=== PATIENT | female | born 1945 | race Caucasian/White ===

== ENCOUNTER → 2017-06-10 | Outpatient (CLI) | payer MEDICARE | LOC: RAD 08:40 | PROVIDERS: ATTEND Family Medicine | DX: I51.7 Cardiomegaly (principal) | CPT/HCPCS: 93306 ==

== ENCOUNTER 2017-09-23 16:38 | Inpatient (IN) | payer MEDICARE ==
[~2017-09-23] VITALS: Ht 152.4 cm; Wt 79.4 kg
[2017-09-23] VITALS (14 sets, daily range): BP systolic 89–154; BP diastolic 53–130
[2017-09-23] MEDS ORDERED: FUROSEMIDE INJ 10 MG/ML 4 ML VIAL IV ONE (18:00)
[2017-09-23] MEDS ORDERED: METOPROLOL TARTRATE INJ 1 MG/ML VIAL IV SCH (18:00)
[2017-09-23] MEDS ORDERED: FAMOTIDINE 20 MG/2 ML VIAL IV ONE (18:00)
[2017-09-23] MEDS ORDERED: ONDANSETRON HCL INJ 2 MG/ML VIAL IV PRN (18:00)
[2017-09-23] MEDS ORDERED: NITROGLYCERIN 2% OINT 1 GM PKT TOP ONE (18:00)
[2017-09-23 18:08] LABS: BASOPHILS % 0.3 % (0.0-1.0); EOSINOPHILS # (AUTO) 0.2 (0.0-0.4); EOSINOPHILS % 1.8 % (0.0-6.0); HEMATOCRIT 45.8 % (34.2-44.1); HEMOGLOBIN 15.3 g/dL (12.0-16.0); LYMPHOCYTES # (AUTO) 1.5 (1.0-3.2); LYMPHOCYTES % 13.8 % (18.0-39.1); MEAN CORPUSCULAR HEMOGLOBIN 29.8 pg (28-32); MEAN CORPUSCULAR HGB CONC 33.4 g/dL (31-35); MEAN CORPUSCULAR VOLUME 89.1 fL (81-99); MONOCYTES # (AUTO) 1.1 (0.2-0.8); MONOCYTES % 9.7 % (4.4-11.3); NEUTROPHILS # (AUTO) 8.1 (2.1-6.9); NEUTROPHILS % 74.1 % (38.7-80.0); PLATELET COUNT 288 x10e3/uL (140-360); RED BLOOD COUNT 5.14 x10e6/uL (3.6-5.1); RED CELL DISTRIBUTION WIDTH 15.2 % (11.7-14.4)
[2017-09-23] MEDS ORDERED: HYDRALAZINE HC100 MG (18:09)
[2017-09-23] MEDS ORDERED: LOVASTATIN40 MG (18:09)
[2017-09-23] MEDS ORDERED: LUMIGAN2.5 M1 (18:09)
[2017-09-23] MEDS ORDERED: ATENOLOL25 MG (18:09)
[2017-09-23] MEDS ORDERED: CLONAZEPAM0.5 M1 (18:09)
[2017-09-23] MEDS ORDERED: FUROSEMIDE20 MG PO (18:09)
[2017-09-23] MEDS ORDERED: BETIMOL5 M1 (18:09)
[2017-09-23] MEDS ORDERED: METFORMIN HCL500 MG (18:09)
[2017-09-23] MEDS ORDERED: LISINOPRIL10 MG PO (18:10)
[2017-09-23] MEDS ORDERED: METOPROLOL TARTRATE INJ 1 MG/ML VIAL ONE ×2 (18:14→19:09)
[2017-09-23 18:17] LABS: BLOOD UREA NITROGEN 23 mg/dL (8-26); BUN/CREATININE RATIO 26 (6-25); CARBON DIOXIDE 25 mmol/L (22-32); CHLORIDE 107 mmol/L (101-111); CREATININE, SERUM 0.9 mg/dL (0.6-1.1); EST GLOMERULAR FILTRATION RATE > 60 ML/MIN (60-); GLUCOSE 121 mg/dL (74-118); SODIUM 141 mmol/L (136-144)
--- NOTE | 2017-09-23 18:17 | Diagnostic Imaging Report ---
PROCEDURE: A single AP view of the chest. COMPARISON: None. INDICATIONS: SOB, CHF, CHEST PAIN FOR A FEW WEEKS FINDINGS: Lines/tubes: None. Lungs and pleura: The lungs are well-inflated. Bilateral lower lung hazy opacities represent layering effusions or soft tissue attenuation. No definite consolidation Heart and mediastinum: Moderately enlarged cardiac silhouette. Central pulmonary venous congestion. Bones: No acute bony abnormality. IMPRESSION: 1. moderately large cardiac silhouette. Central pulmonary venous congestion, suggesting CHF. 2. Bilateral lower lung hazy opacities may reflect layering effusions versus soft tissue attenuation from body habitus. Chest PA and lateral may be obtained for further evaluation. Johan West M.D. Dictated by: Johan West M.D. on 09/23/2017 at 18:22 Electronically approved by: Johan West M.D. on 09/23/2017 at 18:22
[2017-09-23] MEDS ORDERED: DILTIAZEM HCL 5 MG/ML 5 ML VIAL IV STA (18:51)
[2017-09-23] MEDS ORDERED: SODIUM CHLORIDE FLUSH 10 ML SYR INJ PRN (19:00)
[2017-09-23] MEDS: METOPROLOL TARTRATE INJ 1 MG/ML VIAL IV SCH ×2 (19:05→19:10)
[2017-09-23] MEDS ORDERED: ENOXAPARIN INJ 80 MG/0.8 ML SYR SC STA (19:34)
[2017-09-23] MEDS: DILTIAZEM HCL 100 ML IV SCH (20:18)
[2017-09-23 21:41] LABS: ALANINE AMINOTRANSFERASE 37 IU/L (0-55); ALBUMIN 3.1 g/dL (3.5-5.0); ALBUMIN/GLOBULIN RATIO 1.3 (0.8-2.0); ALKALINE PHOSPHATASE 71 IU/L (40-150); CALCIUM 8.9 mg/dL (8.4-10.2); CREATINE KINASE 39 IU/L (29-168); MAGNESIUM 1.4 MG/DL (1.3-2.1)
[2017-09-24] VITALS (39 sets, daily range): BP systolic 112–145; BP diastolic 65–114
--- NOTE | 2017-09-24 01:03 | History and Physical ---
HISTORY OF PRESENT ILLNESS: This is a 72-year-old female with a history of hypertension, history of diabetes mellitus who came into the office with shortness of breath and also some palpitations. EKG was done in the office, and the patient was found to be in atrial fibrillation with rapid ventricular response and also with congestive heart failure, and the patient was sent to the emergency room for further evaluation. PAST MEDICAL HISTORY: Includes a history of glaucoma, history of essential hypertension, history of hyperlipidemia, history of anxiety disorder, history of type 2 diabetes mellitus and history of hypertension. ALLERGIES: CODEINE. PAST SURGICAL HISTORY: Cataracts bilaterally. FAMILY HISTORY: Father and mother are and history of hypertension and hypertensive heart disease in mother. SOCIAL HISTORY: No ETOH, no IV drug abuse, no history of tobacco abuse. REVIEW OF SYSTEMS: Negative chest pain. Positive for shortness of breath. Positive for some PND. No orthopnea. No diplopia. No blurry vision. Positive for anxiety. No depression. No nausea, vomiting, diarrhea. No hematochezia, no hematemesis either. HOME MEDICATIONS: Atenolol 25 mg, lovastatin 40 mg, eye drops, lisinopril 20 mg, metformin 500 mg, furosemide 20 mg, clonidine 0.2 mg, hydralazine and Klonopin as needed for anxiety. The patient has had pneumococcal immunizations recently in 2017. PHYSICAL EXAMINATION GENERAL: The patient is alert and oriented x3, a little anxious appearing. HEENT: Normocephalic, atraumatic. Pupils reactive to light and accommodation. CVS: S1 and S2. Irregularly irregular, rhythm tachy. The patient has an S3 too. LUNGS: Positive for crackles along the bases. ABDOMEN: Nontender, nondistended. EXTREMITIES: 2+ edema. EKG shows atrial fibrillation with rapid ventricular response. Chest x-ray shows moderate cardiomegaly, enlarged cardiac silhouette, and bilateral lower lung hazy opacities. The initial blood work that we have shows sodium 141, potassium 4.0, BUN 23, creatinine 0.9 with estimated GFR of above 60. Glucose is 121. ALT, AST pending. BNP 849. White count ___.94, hemoglobin 15.0, hematocrit 45.8. Neutrophil count 8.1. ASSESSMENT 1. Atrial fibrillation with rapid ventricular response. 2. Congestive heart failure. 3. Hypertension. 4. Hyperlipidemia. PLAN: Admit the patient and a Cardizem drip has been started. The patient has been given IV metoprolol, heart rate . Need an echocardiogram. Dr. Stoddard has been consulted. Will also do a thyroid profile. Restart home medications. IV Lasix for diuresing her. Strict I's and O's and daily weights will be monitored. A low-salt diet. Further recommendations depending on clinical course and also depending on cardiology. Will continue to monitor the patient along with cardiology. The patient is on Cardizem drip. Job#: [id number] GH
[2017-09-24 03:37] LABS: CREATINE KINASE MB 1.8 ng/mL (0-5.0)
[2017-09-24 04:37] LABS: BASOPHILS # (AUTO) 0.1 (0.0-0.1); BASOPHILS % 0.6 % (0.0-1.0); EOSINOPHILS # (AUTO) 0.3 (0.0-0.4); EOSINOPHILS % 3.2 % (0.0-6.0); HEMATOCRIT 42.4 % (34.2-44.1); LYMPHOCYTES # (AUTO) 1.6 (1.0-3.2); LYMPHOCYTES % 18.9 % (18.0-39.1); MEAN CORPUSCULAR HEMOGLOBIN 29.5 pg (28-32); MEAN CORPUSCULAR VOLUME 89.5 fL (81-99); MONOCYTES # (AUTO) 1.1 (0.2-0.8); MONOCYTES % 12.6 % (4.4-11.3); NEUTROPHILS # (AUTO) 5.5 (2.1-6.9); NEUTROPHILS % 64.3 % (38.7-80.0); PLATELET COUNT 219 x10e3/uL (140-360); RED BLOOD COUNT 4.74 x10e6/uL (3.6-5.1); RED CELL DISTRIBUTION WIDTH 14.8 % (11.7-14.4)
[2017-09-24 05:06] LABS: ANION GAP 14.3 mmol/L (8-16); BLOOD UREA NITROGEN 19 mg/dL (7-26); BUN/CREATININE RATIO 25 (6-25); CALCIUM 8.4 mg/dL (8.4-10.2); CARBON DIOXIDE 23 mmol/L (22-29); CHLORIDE 108 mmol/L (98-107); CREATININE, SERUM 0.75 mg/dL (0.57-1.11); EST GLOMERULAR FILTRATION RATE > 60 ML/MIN (60-); GLUCOSE 100 mg/dL (74-118); POTASSIUM 3.3 mmol/L (3.5-5.1); SODIUM 142 mmol/L (136-145)
[2017-09-24 05:37] LABS: FREE THYROXINE INDEX 2.1981 (1.4-3.8); THYROID STIMULATING HORMONE 1.084 uIU/mL (0.350-4.940)
[2017-09-24] MEDS: DILTIAZEM HCL 100 ML IV SCH (07:46)
[2017-09-24] MEDS ORDERED: POTASSIUM CHLORIDE 20 MEQ TAB CR PO STA (07:57)
[2017-09-24] MEDS ORDERED: DEXTROSE 50% SYRINGE 50 ML IV PRN (08:00)
[2017-09-24] MEDS: APIXABAN 5 MG TABLET PO SCH ×2 (08:22→17:34)
[2017-09-24] MEDS: LISINOPRIL 10 MG TAB PO SCH (08:22)
[2017-09-24] MEDS ORDERED: METOPROLOL TARTRATE 25 MG TAB PO SCH (09:00)
[2017-09-24] MEDS ORDERED: FUROSEMIDE INJ 10 MG/ML 4 ML VIAL IV SCH (09:00)
[2017-09-24 11:17] LABS: CREATINE KINASE MB 1.8 ng/mL (0-5.0)
[2017-09-24] MEDS: INSULIN REGULAR, HUMAN 100 UNIT/1 ML 3ML VIAL SQ SCH ×3 (11:24→21:00)
[2017-09-24] MEDS: METOPROLOL TARTRATE 25 MG TAB PO SCH ×2 (11:26→17:34)
[2017-09-24] MEDS: AMIODARONE HCL 200 MG TAB PO SCH ×3 (11:28→21:14)
--- NOTE | 2017-09-24 13:47 | Consultation ---
DATE OF CONSULTATION: September 24, 2017 CARDIAC CONSULTATION REASON FOR CONSULTATION: Atrial fibrillation with rapid ventricular response. Congestive heart failure. HISTORY: A 72-year-old lady who is known with hypertension and diabetes mellitus. Patient for the last couple of weeks also not feeling well with loss of energy, easy fatigability, shortness of breath on exertion, and swelling of the lower extremities and some cough. She denied having any anginal chest pain. She denied having any pleuritic chest pain. She denied having any recent trouble. She denied having any recent febrile illness. She was found to be in atrial fibrillation with rapid ventricular response. She was advised to go to the emergency room. In the emergency room her chest x-ray showed cardiomegaly with volume overload. Her BNP was 849, and she was in atrial fibrillation with rapid ventricular response. Patient was started on Cardizem drip. She was given diuretics, admitted to the intensive care unit. Cardiac consultation is obtained. I visited with the patient, who denied having any chest pain at this timepoint. Her shortness of breath seems to be better after getting the diuretics. She is on Cardizem drip with a heart rate approximately at 100. REVIEW OF SYSTEMS: CARDIAC: As per above. PULMONARY: As per above. GENERAL: No fever. No chills. No weight loss or gain. GI: No hematemesis. No melena. No nausea. No vomiting. No diarrhea. : Increased frequency of urination. No hematuria. No dysuria. MUSCULOSKELETAL: Some back pain, knee pain at times, nonspecific. NEUROLOGICAL: No speech abnormality. No seizure activity. No CVA symptoms. ENDOCRINE: Patient on treatment for diabetes. HEMATOLOGY: No easy bruising or bleeding. PSYCHIATRIC: Patient is anxious usually. PAST MEDICAL HISTORY: 1. Hypertension since 2012. 1. Diabetes mellitus since 2014. 2. Anxiety. 3. Cataract surgery. 4. Glaucoma. 5. Obesity. 6. Degenerative joint disease. SOCIAL HISTORY: She is . She is nonsmoker, [id number]. FAMILY HISTORY: Father at the age of 83 with congestive heart failure. Mother of complication of stroke at age 94. She had also congestive heart failure. One brother unknown medical history. Sister healthy. Three children, one son and two daughters. All are healthy. HOME MEDICATIONS: Atenolol 25 mg a day. Lovastatin 40 mg a day. Hydralazine 100 mg twice a day. Lisinopril 10 mg a day. Lasix 20 mg a day. Clonazepam p.r.n. Lumigan and timolol eyedrops. Metformin 500 mg twice a day. ALLERGIES: CODEINE. PHYSICAL EXAMINATION: VITALS: Height of 5 feet, weight of 170 pounds. Blood pressure 120/80. Heart rate of 100, irregular-irregular of atrial fibrillation. Respiratory rate of 20. HEENT: Pupils are reactive. NECK: No elevation of jugular venous pulsation. No bruit. CHEST: Clear to auscultation and percussion. HEART: PMI 5th left intercostal space. Irregular-irregular rate of atrial fibrillation. Normal 1st and 2nd heart sounds. Soft ejection systolic murmur. ABDOMEN: Soft with no organomegaly. No abdominal bruits. EXTREMITIES: Mild peripheral edema. NEUROLOGIC: Awake, alert, oriented. Able to move her extremities. LABORATORY DATA: Sodium of 142. Potassium on admission 4, today at 3.3. BUN of 19, creatinine 0.75. Glucose of 100. White blood cell count of 8.6, hemoglobin of 14, hematocrit 42%, platelet count of 219. BNP of 849. TSH of 1.1. IMAGING: Chest x-ray as per above. EKG showing atrial fibrillation with rapid ventricular response. IMPRESSION AND PLAN: 1. Atrial fibrillation with rapid ventricular response. 2. Congestive heart failure-like symptoms. Seems to be diastolic by description, secondary to atrial fibrillation and ventricles. 3. Hypertension and hypertensive heart disease. 4. Hyperlipidemia. 5. Diabetes mellitus. 6. Probability of coronary artery disease since patient diabetic and her age, et cetera. Cardiac-garza, recommendation will be as follows: 1. Will review the echocardiogram done. 2. Serial cardiac enzymes. 3. Adjustment of medication and treatment of atrial fibrillation explained at length to the patient and her . Treatment will be towards control of rate and try to convert back to normal sinus rhythm and prevention of thromboembolic phenomena. 4. Regarding her heart failure treatment, probably by controlling rate and adjusting blood pressure medication which would achieve that. 5. Regarding the probability of coronary artery disease, this can be addressed at later time. All this discussed and explained. Questions are answered. Long visit. Patient seen in intensive care unit. Visit was for almost 1 hour or more with discussion, explanation, reviewing records, and explanation of the treatment and answering the patient and her concern. Case discussed with staff. All medications will be adjusted. Will try to stop IV fluid and move her out of ICU. Will follow patient's progression with you and would like to thank you for your kind referral. Job#: [id number] BRITTANY
[2017-09-24] MEDS ORDERED: POTASSIUM CHLORIDE 20 MEQ TAB CR PO ONE (18:00)
[2017-09-25] VITALS (26 sets, daily range): BP systolic 108–160; BP diastolic 75–123
[2017-09-25 04:45] LABS: BASOPHILS % 0.2 % (0.0-1.0); EOSINOPHILS # (AUTO) 0.2 (0.0-0.4); EOSINOPHILS % 2.7 % (0.0-6.0); HEMATOCRIT 42.3 % (34.2-44.1); HEMOGLOBIN 13.7 g/dL (12.0-16.0); LYMPHOCYTES # (AUTO) 1.5 (1.0-3.2); LYMPHOCYTES % 17.7 % (18.0-39.1); MEAN CORPUSCULAR HEMOGLOBIN 29.7 pg (28-32); MEAN CORPUSCULAR HGB CONC 32.4 g/dL (31-35); MEAN CORPUSCULAR VOLUME 91.8 fL (81-99); MONOCYTES % 12.5 % (4.4-11.3); NEUTROPHILS # (AUTO) 5.5 (2.1-6.9); NEUTROPHILS % 66.7 % (38.7-80.0); PLATELET COUNT 202 x10e3/uL (140-360); RED BLOOD COUNT 4.61 x10e6/uL (3.6-5.1)
[2017-09-25 04:59] LABS: INR 1.4; PROTHROMBIN TIME 16.1 seconds (11.9-14.5)
[2017-09-25 05:12] LABS: ALBUMIN 2.8 g/dL (3.5-5.0); ALBUMIN/GLOBULIN RATIO 1.1 (0.8-2.0); ANION GAP 15.3 mmol/L (8-16); CALCIUM 8.7 mg/dL (8.4-10.2); CHOL/HDL RATIO 2.9 (3.0-3.6); CREATININE, SERUM 0.92 mg/dL (0.57-1.11); POTASSIUM 4.3 mmol/L (3.5-5.1)
[2017-09-25] MEDS: DILTIAZEM HCL 100 ML IV SCH (07:00)
[2017-09-25] MEDS: INSULIN REGULAR, HUMAN 100 UNIT/1 ML 3ML VIAL SQ SCH ×4 (08:04→21:17)
[2017-09-25] MEDS: APIXABAN 5 MG TABLET PO SCH ×2 (08:09→17:45)
[2017-09-25] MEDS: AMIODARONE HCL 200 MG TAB PO SCH ×3 (08:09→21:16)
[2017-09-25] MEDS: METOPROLOL TARTRATE 25 MG TAB PO SCH ×3 (08:10→21:16)
[2017-09-25] MEDS: LISINOPRIL 10 MG TAB PO SCH (08:10)
[2017-09-25] MEDS ORDERED: FUROSEMIDE 40 MG TAB PO SCH (09:00)
[2017-09-25] MEDS ORDERED: FUROSEMIDE INJ 10 MG/ML 4 ML VIAL IV ONE (11:30)
[2017-09-25] MEDS: FUROSEMIDE INJ 10 MG/ML 4 ML VIAL IV SCH (21:16)
[2017-09-26] VITALS (18 sets, daily range): BP systolic 83–166; BP diastolic 50–126
[2017-09-26 05:03] LABS: BASOPHILS % 0.3 % (0.0-1.0); EOSINOPHILS # (AUTO) 0.2 (0.0-0.4); EOSINOPHILS % 1.9 % (0.0-6.0); HEMATOCRIT 41.9 % (34.2-44.1); HEMOGLOBIN 13.8 g/dL (12.0-16.0); LYMPHOCYTES # (AUTO) 1.3 (1.0-3.2); LYMPHOCYTES % 12.1 % (18.0-39.1); MEAN CORPUSCULAR HEMOGLOBIN 29.5 pg (28-32); MEAN CORPUSCULAR HGB CONC 32.9 g/dL (31-35); MEAN CORPUSCULAR VOLUME 89.5 fL (81-99); MONOCYTES % 9.5 % (4.4-11.3); NEUTROPHILS # (AUTO) 7.9 (2.1-6.9); NEUTROPHILS % 75.8 % (38.7-80.0); PLATELET COUNT 225 x10e3/uL (140-360); RED BLOOD COUNT 4.68 x10e6/uL (3.6-5.1); RED CELL DISTRIBUTION WIDTH 14.6 % (11.7-14.4)
[2017-09-26 05:36] LABS: ALBUMIN 2.8 g/dL (3.5-5.0); ALBUMIN/GLOBULIN RATIO 1.2 (0.8-2.0); ANION GAP 14.3 mmol/L (8-16); CALCIUM 8.4 mg/dL (8.4-10.2); CREATININE, SERUM 0.94 mg/dL (0.57-1.11); POTASSIUM 3.3 mmol/L (3.5-5.1)
[2017-09-26] MEDS ORDERED: CLONIDINE HCL 0.1 MG TAB PO PRN (06:45)
[2017-09-26] MEDS: INSULIN REGULAR, HUMAN 100 UNIT/1 ML 3ML VIAL SQ SCH ×4 (07:30→20:28)
[2017-09-26] MEDS: CLONAZEPAM 0.5 MG TAB PO PRN (07:49)
[2017-09-26] MEDS ORDERED: POTASSIUM CHLORIDE 20 MEQ TAB CR PO ONE ×2 (08:57→09:05)
[2017-09-26] MEDS: APIXABAN 5 MG TABLET PO SCH ×2 (10:20→17:26)
[2017-09-26] MEDS: LISINOPRIL 10 MG TAB PO SCH (10:21)
[2017-09-26] MEDS: METOPROLOL TARTRATE 25 MG TAB PO SCH ×2 (10:23→17:26)
[2017-09-26] MEDS: AMIODARONE HCL 200 MG TAB PO SCH (10:24)
[2017-09-26] MEDS: FUROSEMIDE INJ 10 MG/ML 4 ML VIAL IV SCH (10:30)
[2017-09-26] MEDS ORDERED: DIGOXIN 0.25 MG TAB PO NR (15:45)
[2017-09-27 05:01] LABS: BASOPHILS # (AUTO) 0.1 (0.0-0.1); BASOPHILS % 0.6 % (0.0-1.0); EOSINOPHILS # (AUTO) 0.3 (0.0-0.4); HEMATOCRIT 41.5 % (34.2-44.1); HEMOGLOBIN 13.6 g/dL (12.0-16.0); LYMPHOCYTES % 24.9 % (18.0-39.1); MEAN CORPUSCULAR HEMOGLOBIN 29.8 pg (28-32); MEAN CORPUSCULAR HGB CONC 32.8 g/dL (31-35); MONOCYTES # (AUTO) 0.8 (0.2-0.8); MONOCYTES % 10.5 % (4.4-11.3); NEUTROPHILS # (AUTO) 4.7 (2.1-6.9); NEUTROPHILS % 59.6 % (38.7-80.0); PLATELET COUNT 201 x10e3/uL (140-360); RED BLOOD COUNT 4.56 x10e6/uL (3.6-5.1); RED CELL DISTRIBUTION WIDTH 14.6 % (11.7-14.4)
[2017-09-27 05:15] VITALS: BP 156/109
[2017-09-27 05:26] LABS: ALBUMIN 2.6 g/dL (3.5-5.0); ALBUMIN/GLOBULIN RATIO 1.1 (0.8-2.0); CALCIUM 8.4 mg/dL (8.4-10.2); CREATININE, SERUM 1.01 mg/dL (0.57-1.11)
[2017-09-27] MEDS: METOPROLOL TARTRATE 25 MG TAB PO SCH ×2 (05:39→17:12)
[2017-09-27 08:20] VITALS: BP 156/109
[2017-09-27] MEDS: INSULIN REGULAR, HUMAN 100 UNIT/1 ML 3ML VIAL SQ SCH ×4 (08:21→20:37)
[2017-09-27] MEDS: LISINOPRIL 10 MG TAB PO SCH (08:21)
[2017-09-27] MEDS: APIXABAN 5 MG TABLET PO SCH ×2 (08:21→17:12)
[2017-09-27] MEDS: DIGOXIN 0.125 MG TAB PO SCH (08:21)
[2017-09-27] MEDS: FUROSEMIDE 40 MG TAB PO SCH (08:21)
[2017-09-27] MEDS: AMIODARONE HCL 200 MG TAB PO SCH (08:21)
[2017-09-27] MEDS: AMLODIPINE BESYLATE 5 MG TAB PO SCH (13:49)
[2017-09-27 16:00] VITALS: BP 140/105
[2017-09-27 20:00] VITALS: BP 151/113
[2017-09-27 21:36] VITALS: BP 151/113
[2017-09-28] VITALS: BP 129/88
[2017-09-28] MEDS: CLONAZEPAM 0.5 MG TAB PO PRN (00:45)
[2017-09-28 04:00] VITALS: BP 152/109
[2017-09-28] MEDS: INSULIN REGULAR, HUMAN 100 UNIT/1 ML 3ML VIAL SQ SCH (07:30)
[2017-09-28 08:20] VITALS: BP 179/127
[2017-09-28] MEDS: APIXABAN 5 MG TABLET PO SCH (08:53)
[2017-09-28] MEDS: AMIODARONE HCL 200 MG TAB PO SCH (08:53)
[2017-09-28] MEDS: FUROSEMIDE 40 MG TAB PO SCH (08:53)
[2017-09-28] MEDS: LISINOPRIL 10 MG TAB PO SCH (08:53)
[2017-09-28] MEDS: AMLODIPINE BESYLATE 5 MG TAB PO SCH (08:53)
[2017-09-28] MEDS: DIGOXIN 0.125 MG TAB PO SCH (08:53)
[2017-09-28 08:55] VITALS: BP 179/127
[2017-09-28] MEDS ORDERED: METOPROLOL TARTRATE 50 MG TAB PO SCH (09:00)
[2017-09-28] MEDS ORDERED: SERTRALINE HCL 50 MG TAB PO SCH (09:00)
[2017-09-28] MEDS ORDERED: DIGOXIN125 MCG PO (10:51)
[2017-09-28] MEDS ORDERED: METOPROLOL TART50 MG PO (10:51)
[2017-09-28] MEDS ORDERED: apixaban PO (10:52)
[2017-09-28] MEDS ORDERED: AMLODIPINE BESYL5 MG PO (10:52)
[2017-09-28] MEDS ORDERED: AMIODARONE HCL200 MG PO (10:54)
== END 2017-09-28 12:01 | disposition home or self-care (01) | DRG 308 ==
LOC: ER 16:38 → ERHOLD 18:52 → ICU 21:00 → MED/SURG3 09-26 11:33
PROVIDERS: ADMIT Family Medicine; ATTEND Family Medicine
DX: I48.1 Persistent atrial fibrillation (principal); I50.33 Acute on chronic diastolic (congestive) heart failure; I11.0 Hypertensive heart disease with heart failure; E78.5 Hyperlipidemia, unspecified; I25.10 Atherosclerotic heart disease of native coronary artery without angina pectoris; E11.9 Type 2 diabetes mellitus without complications; H40.9 Unspecified glaucoma; E66.9 Obesity, unspecified; Z68.34 Body mass index [BMI] 34.0-34.9, adult; M19.90 Unspecified osteoarthritis, unspecified site; K59.00 Constipation, unspecified; F41.8 Other specified anxiety disorders; Z79.84 Long term (current) use of oral hypoglycemic drugs; Z79.01 Long term (current) use of anticoagulants
CPT/HCPCS: 36415; 71045; 80048; 80053; 80061; 82270; 82550; 82553; 82948; 83036; 83735; 83880; 84436; 84443; 84479; 84484; 85025; 85610; 93005; 93306; 96361; 99284; J1650; J1940; J2405

== ENCOUNTER 2018-05-18 16:06 | Emergency (ER) | payer MEDICARE ==
[~2018-05-18] VITALS: Ht 152.4 cm; Wt 79.4 kg
[~2018-05-18 16:06] MED LIST: AMIODARONE HCL200 MG PO; AMLODIPINE BESYL5 MG PO; ATENOLOL25 MG; BETIMOL5 M1; CLONAZEPAM0.5 M1; DIGOXIN125 MCG PO; FUROSEMIDE20 MG PO; HYDRALAZINE HC100 MG; LISINOPRIL10 MG PO; LOVASTATIN40 MG; LUMIGAN2.5 M1; METFORMIN HCL500 MG; METOPROLOL TART50 MG PO; apixaban PO
[2018-05-18] MEDS ORDERED: DILTIAZEM HCL 5 MG/ML 5 ML VIAL IV ONE (17:30)
--- NOTE | 2018-05-18 17:49 | Diagnostic Imaging Report ---
EXAMINATION: CHEST SINGLE (PORTABLE) INDICATION: rapid rapid heart rate COMPARISON: None FINDINGS: AP view TUBES and LINES: None. LUNGS: Lungs are well inflated. Lungs are clear. There is mild prominence of the central pulmonary vasculature, consistent with pulmonary venous congestion. PLEURA: No pleural effusion or pneumothorax. HEART AND MEDIASTINUM: Cardiac size is mildly enlarged. There are atherosclerotic calcifications within the aorta. BONES AND SOFT TISSUES: No acute osseous lesion. Soft tissues are unremarkable. UPPER ABDOMEN: No free air under the diaphragm. IMPRESSION: Mild cardiomegaly with central pulmonary venous congestion. Signed by: Dr. Ha Mayorga M.D. on 05/18/2018 5:45 PM
[2018-05-18 17:55] LABS: BASOPHILS % 0.3 % (0.0-1.0); EOSINOPHILS # (AUTO) 0.2 (0.0-0.4); EOSINOPHILS % 2.3 % (0.0-6.0); HEMATOCRIT 43.6 % (34.2-44.1); HEMOGLOBIN 14.3 g/dL (12.0-16.0); LYMPHOCYTES # (AUTO) 1.5 (1.0-3.2); MEAN CORPUSCULAR HEMOGLOBIN 30.5 pg (28-32); MEAN CORPUSCULAR HGB CONC 32.8 g/dL (31-35); MONOCYTES # (AUTO) 0.7 (0.2-0.8); MONOCYTES % 6.7 % (4.4-11.3); NEUTROPHILS % 75.5 % (38.7-80.0); PLATELET COUNT 245 x10e3/uL (140-360); RED BLOOD COUNT 4.69 x10e6/uL (3.6-5.1); RED CELL DISTRIBUTION WIDTH 13.4 % (11.7-14.4)
[2018-05-18 18:06] LABS: INR 1.04; PROTHROMBIN TIME 14.1 seconds (11.9-14.5)
[2018-05-18 18:07] LABS: PARTIAL THROMBOPLASTIN TIME 31.5 seconds (23.8-35.5)
[2018-05-18 18:08] LABS: ALANINE AMINOTRANSFERASE 18 IU/L (0-55); ALBUMIN 3.8 g/dL (3.5-5.0); ALBUMIN/GLOBULIN RATIO 1.1 (0.8-2.0); ALKALINE PHOSPHATASE 52 IU/L (40-150); ANION GAP 12.5 mmol/L (8-16); BLOOD UREA NITROGEN 15 mg/dL (7-26); BUN/CREATININE RATIO 17 (6-25); CALCIUM 9.4 mg/dL (8.4-10.2); CARBON DIOXIDE 27 mmol/L (22-29); CHLORIDE 105 mmol/L (98-107); CREATINE KINASE 39 IU/L (29-168); CREATININE, SERUM 0.89 mg/dL (0.57-1.11); EST GLOMERULAR FILTRATION RATE > 60 ML/MIN (60-); GLUCOSE 150 mg/dL (74-118); POTASSIUM 3.5 mmol/L (3.5-5.1); SODIUM 141 mmol/L (136-145)
--- NOTE | 2018-05-18 19:21 | NUR ---
Bedside shift report given to SHAYY Rollins. Pt updated on POC. Pt denies any CP or SOB at the present time. Call light remains at bedside. Spouse remains at bedside
[2018-05-18 20:12] LABS: BILIRUBIN,URINE NEGATIVE (NEGATIVE); CLARITY,URINE CLEAR (CLEAR); COLOR,URINE YELLOW (YELLOW); KETONES,URINE NEGATIVE (NEGATIVE); NITRITE,URINE NEGATIVE (NEGATIVE); PROTEIN,URINE DIPSTICK 1+ (NEGATIVE); URINE UROBILINOGEN 1 mg/dL (0.2 - 1)
[2018-05-18 20:13] LABS: LEUKOCYTE ESTERASE ,URINE TRACE (NEGATIVE)
[2018-05-18 20:22] LABS: BACTERIA,URINE MANY /HPF; EPITHELIAL CELLS,URINE FEW /LPF; WBC,URINE (MAN) 0-5 /HPF (0-5)
[2018-05-18] MEDS ORDERED: LORAZEPAM INJ 2 MG/ML VIAL IV ONE (23:30)
[2018-05-18 23:45] VITALS: BP 162/97
== END 2018-05-18 23:56 | disposition home or self-care (01) ==
LOC: ER 16:06
DX: R07.89 Other chest pain (principal); I48.2 Chronic atrial fibrillation; I10 Essential (primary) hypertension; E11.9 Type 2 diabetes mellitus without complications; F41.9 Anxiety disorder, unspecified; F32.9 Major depressive disorder, single episode, unspecified
CPT/HCPCS: 36415; 71045; 80053; 81001; 82550; 82553; 83880; 84484; 85025; 85610; 85730; 93005; 99284; J2060